=== PATIENT | male | born 1955 | race African-American/Black ===

== ENCOUNTER 2017-05-12 18:23 | Emergency (ER) | payer MEDICARE, MEDICAID ==
[~2017-05-12] VITALS: Ht 165.1 cm; Wt 73.0 kg
[~2017-05-12 18:23] MED LIST: ALBU18HF2 IH; ALBU2.5V13 IH; BENAZEPRIL PO; ENAL1TAB10 PO; HYDROCHLOROTHIAZIDE PO; P50 PO
[2017-05-12 20:55] VITALS: BP 138/85
[2017-05-12] MEDS ORDERED: BACITRACIN ZINC OINT UDPKT TOP ONE (21:15)
[2017-05-12] MEDS ORDERED: LIDOCAINE HCL 1% 20ML VIAL (Pyxis) INJ MC ONE (21:15)
== END 2017-05-12 22:36 | disposition home or self-care (01) ==
LOC: ER 18:23
DX: L02.211 Cutaneous abscess of abdominal wall (principal); J45.909 Unspecified asthma, uncomplicated; F17.210 Nicotine dependence, cigarettes, uncomplicated
CPT/HCPCS: 10060; 99283; J3490

== ENCOUNTER 2017-05-15 14:06 | Emergency (ER) | payer MEDICARE, MEDICAID ==
[~2017-05-15] VITALS: Ht 165.1 cm; Wt 73.5 kg
[2017-05-15 14:45] VITALS: BP 96/57
== END 2017-05-15 17:46 | disposition home or self-care (01) ==
LOC: ER 16:15
DX: Z48.817 Encounter for surgical aftercare following surgery on the skin and subcutaneous tissue (principal); J44.9 Chronic obstructive pulmonary disease, unspecified; I10 Essential (primary) hypertension; F17.200 Nicotine dependence, unspecified, uncomplicated
CPT/HCPCS: 99283

== ENCOUNTER 2017-05-19 10:52 | Emergency (ER) | payer MEDICARE, MEDICAID ==
[~2017-05-19] VITALS: Ht 165.1 cm; Wt 73.0 kg
[2017-05-19 11:47] VITALS: BP 120/50
[2017-05-19] MEDS ORDERED: BACITRACIN ZINC OINT UDPKT TOP ONE (13:15)
== END 2017-05-19 13:16 | disposition home or self-care (01) ==
LOC: ER 13:13
DX: Z08 Encounter for follow-up examination after completed treatment for malignant neoplasm (principal); I10 Essential (primary) hypertension; F17.210 Nicotine dependence, cigarettes, uncomplicated; J44.9 Chronic obstructive pulmonary disease, unspecified
CPT/HCPCS: 99283

== ENCOUNTER 2017-07-07 10:53 | Emergency (ER) | payer MEDICARE, MEDICAID ==
[~2017-07-07] VITALS: Ht 167.6 cm; Wt 73.0 kg
[2017-07-07] MEDS ORDERED: LIDOCAINE HCL 1% 20ML VIAL (Pyxis) INJ MC ONE (19:15)
[2017-07-07] MEDS ORDERED: BACITRACIN ZINC OINT UDPKT TOP ONE (19:15)
[2017-07-07 19:49] VITALS: BP 116/68
== END 2017-07-07 20:44 | disposition home or self-care (01) ==
LOC: ER 10:53
DX: L02.411 Cutaneous abscess of right axilla (principal); I10 Essential (primary) hypertension
CPT/HCPCS: 10060; 99283; J3490

== ENCOUNTER 2017-07-09 10:21 | Emergency (ER) | payer MEDICARE, MEDICAID ==
[~2017-07-09] VITALS: Ht 165.1 cm; Wt 70.0 kg
[2017-07-09 13:06] VITALS: BP 113/60
[2017-07-09] MEDS: BACITRACIN ZINC OINT UDPKT TOP ONE (13:54)
== END 2017-07-09 13:58 | disposition home or self-care (01) ==
LOC: ER 10:29
DX: Z48.01 Encounter for change or removal of surgical wound dressing (principal); I10 Essential (primary) hypertension
CPT/HCPCS: 99282

== ENCOUNTER 2018-06-27 13:02 | Emergency (ER) | payer MEDICARE, MEDICAID ==
[~2018-06-27] VITALS: Ht 165.1 cm; Wt 78.0 kg
[2018-06-27] MEDS ORDERED: KETOROLAC 30MG/ML VIAL IV STA (13:56)
[2018-06-27 14:31] LABS: BASOPHILS % 0.5 % (0.0-2.0); EOSINOPHILS % 6.2 % (0.0-5.0); HEMATOCRIT. 41.4 % (42.0-52.0); HEMOGLOBIN. 13.9 g/dL (14.0-18.0); LYMPHOCYTES % 37.9 % (20.0-50.0); MEAN CORPUSCULAR HEMOGLOBIN 29.8 pg (28.0-32.0); MEAN CORPUSCULAR VOLUME 88.6 fL (80.0-94.0); MEAN PLATELET VOLUME 6.8 fl (7.4-10.4); NEUTROPHILS % 46.4 % (40.0-76.0); PLATELET 268 x1000/uL (130-400); RED BLOOD CELL COUNT 4.68 mill/uL (4.7-6.1); RED CELL DISTRIBUTION WIDTH 13.1 % (11.6-14.6)
[2018-06-27 14:37] LABS: CHLORIDE 109 mEq/L (98-107)
[2018-06-27 18:05] VITALS: BP 123/78
== END 2018-06-27 18:13 | disposition home or self-care (01) ==
LOC: ER 13:55
DX: R07.89 Other chest pain (principal); I10 Essential (primary) hypertension; J45.909 Unspecified asthma, uncomplicated; F17.200 Nicotine dependence, unspecified, uncomplicated
CPT/HCPCS: 36415; 71045; 80053; 83880; 84484; 85025; 93005; 96374; 99285; J1885

== ENCOUNTER 2018-11-22 13:22 | Emergency (ER) | payer MEDICARE, MEDICAID ==
[~2018-11-22] VITALS: Ht 165.1 cm; Wt 74.0 kg
[2018-11-22 14:09] VITALS: BP 166/89
== END 2018-11-22 17:24 | disposition home or self-care (01) ==
LOC: ER 14:02
DX: J40 Bronchitis, not specified as acute or chronic (principal); F17.200 Nicotine dependence, unspecified, uncomplicated; I10 Essential (primary) hypertension; Z79.899 Other long term (current) drug therapy
CPT/HCPCS: 71045; 99283

== ENCOUNTER 2018-11-30 20:44 | Emergency (ER) | payer MEDICARE, MEDICAID ==
[~2018-11-30] VITALS: Ht 165.1 cm; Wt 74.0 kg
[2018-12-01 02:36] VITALS: BP 142/92
== END 2018-12-01 02:40 | disposition home or self-care (01) ==
LOC: ER 20:44
DX: I10 Essential (primary) hypertension (principal); R05 Cough; R51 Headache
CPT/HCPCS: 99281

== ENCOUNTER 2019-06-27 15:54 | Emergency (ER) | payer MEDICARE, MEDICAID ==
[~2019-06-27] VITALS: Ht 165.1 cm; Wt 73.0 kg
[2019-06-27 16:07] VITALS: BP 137/78
[2019-06-27] MEDS ORDERED: LIDOCAINE HCL/PF 1% 10 MG/ML 5ML VIAL IJ ONE (16:30)
== END 2019-06-27 17:29 | disposition home or self-care (01) ==
LOC: ER 16:05
DX: L03.011 Cellulitis of right finger (principal); F17.200 Nicotine dependence, unspecified, uncomplicated; J45.909 Unspecified asthma, uncomplicated; Z98.890 Other specified postprocedural states; Z79.899 Other long term (current) drug therapy
CPT/HCPCS: 10060; 99283; J3490

== ENCOUNTER 2019-08-09 10:39 | Emergency (ER) | payer MEDICARE, MEDICAID ==
[~2019-08-09] VITALS: Ht 165.1 cm; Wt 65.0 kg
[2019-08-09] MEDS ORDERED: KETOROLAC 15MG/ML VIAL IM ONE (12:30)
[2019-08-09 15:09] VITALS: BP 125/87
== END 2019-08-09 15:10 | disposition home or self-care (01) ==
LOC: ER 10:39
DX: M54.2 Cervicalgia (principal); R03.0 Elevated blood-pressure reading, without diagnosis of hypertension; J45.909 Unspecified asthma, uncomplicated
CPT/HCPCS: 72040; 93005; 96372; 99283; J1885

== ENCOUNTER 2019-10-05 08:29 | Emergency (ER) | payer MEDICARE, MEDICAID ==
[~2019-10-05] VITALS: Ht 162.6 cm; Wt 70.0 kg
[2019-10-05] MEDS ORDERED: ALBUTEROL (0.083%) 2.5MG/3ML NEB HHN STA (13:17)
[2019-10-05] MEDS ORDERED: IPRATROPIUM BROMIDE (0.02%) 0.5MG/2.5ML NEB HHN STA (13:17)
[2019-10-05] MEDS ORDERED: PREDNISONE 20MG TABLET PO STA (13:17)
[2019-10-05 14:52] LABS: BASOPHILS % 0.3 % (0.0-2.0); EOSINOPHILS % 10.1 % (0.0-5.0); HEMATOCRIT. 47.1 % (42.0-52.0); HEMOGLOBIN. 15.8 g/dL (14.0-18.0); LYMPHOCYTES % 42.1 % (20.0-50.0); MEAN CORPUSCULAR HEMOGLOBIN 29.5 pg (28.0-32.0); MEAN PLATELET VOLUME 6.7 fl (7.4-10.4); MONOCYTES % 8.9 % (2.0-8.0); NEUTROPHILS % 38.6 % (40.0-76.0); PLATELET 286 x1000/uL (130-400); RED BLOOD CELL COUNT 5.35 mill/uL (4.7-6.1)
[2019-10-05 14:58] LABS: CHLORIDE 108 mEq/L (98-107)
[2019-10-05 15:53] VITALS: BP 139/87
== END 2019-10-05 15:55 | disposition home or self-care (01) ==
LOC: ER 08:29
DX: J45.901 Unspecified asthma with (acute) exacerbation (principal); F17.200 Nicotine dependence, unspecified, uncomplicated; R07.9 Chest pain, unspecified; Z79.899 Other long term (current) drug therapy
CPT/HCPCS: 36415; 71045; 80053; 85025; 93005; 94640; 99284; J7512; J7611

== ENCOUNTER 2021-05-16 15:14 | Emergency (ER) | payer MEDICARE, OTHER ==
[~2021-05-16] VITALS: Ht 165.1 cm; Wt 73.4 kg
[2021-05-16 15:51] VITALS: BP 127/78
[2021-05-16] MEDS ORDERED: ALBU6.7H9 INH (17:03)
== END 2021-05-16 17:30 | disposition home or self-care (01) ==
LOC: ER 15:14
DX: Z76.0 Encounter for issue of repeat prescription (principal); J45.909 Unspecified asthma, uncomplicated
CPT/HCPCS: 99283

== ENCOUNTER 2022-08-07 19:08 | Emergency (ER) | payer MEDICAID, MEDICARE, OTHER ==
[~2022-08-07] VITALS: Ht 165.1 cm; Wt 73.0 kg
[~2022-08-07 19:08] MED LIST changes: +ALBU6.7H3 INH
[2022-08-07 19:22] VITALS: BP 169/100
[2022-08-07] MEDS ORDERED: ALBU2.5V13 NEB (21:04)
[2022-08-07] MEDS ORDERED: FLUT1DIS2 INH (21:04)
[2022-08-07] MEDS ORDERED: ALBUTEROL (0.5%) 2.5MG/0.5ML NEB HHN ONE (21:15)
== END 2022-08-07 21:54 | disposition home or self-care (01) ==
LOC: ER 19:08
DX: J45.909 Unspecified asthma, uncomplicated (principal); Z76.0 Encounter for issue of repeat prescription
CPT/HCPCS: 94640; 99283; Z7610

== ENCOUNTER 2022-09-01 17:50 | Emergency (ER) | payer MEDICARE, OTHER ==
[~2022-09-01] VITALS: Ht 165.1 cm; Wt 73.0 kg
[~2022-09-01 17:50] MED LIST changes: +ALBU2.5V13 NEB; +FLUT1DIS2 INH
[2022-09-01 18:19] VITALS: BP 123/84
[2022-09-01] MEDS ORDERED: FLUT1DIS3 INH (20:32)
== END 2022-09-01 20:53 | disposition home or self-care (01) ==
LOC: ER 17:50
DX: J45.909 Unspecified asthma, uncomplicated (principal); Z79.899 Other long term (current) drug therapy
CPT/HCPCS: 99283

== ENCOUNTER 2022-10-07 15:50 | Emergency (ER) | payer BC, MEDICAID ==
[~2022-10-07] VITALS: Ht 165.1 cm; Wt 73.0 kg
[~2022-10-07 15:50] MED LIST changes: +FLUT1DIS3 INH
[2022-10-07 16:01] VITALS: BP 145/84
[2022-10-07] MEDS ORDERED: FLUT1BLS9 IH (19:21)
== END 2022-10-07 19:38 | disposition home or self-care (01) ==
LOC: ER 15:50
DX: Z76.0 Encounter for issue of repeat prescription (principal); J44.9 Chronic obstructive pulmonary disease, unspecified; J45.909 Unspecified asthma, uncomplicated
CPT/HCPCS: 99283

== ENCOUNTER 2022-12-22 15:37 | Emergency (ER) | payer BC, MEDICAID ==
[~2022-12-22] VITALS: Ht 165.1 cm; Wt 73.0 kg
[~2022-12-22 15:37] MED LIST changes: +FLUT1BLS9 IH
[2022-12-22 15:41] VITALS: BP 174/82
[2022-12-22 21:21] LABS: CLARITY URINE CLEAR (CLEAR); COLOR URINE YELLOW (YELLOW); KETONES URINE NEGATIVE (NEGATIVE); LEUKOCYTE ESTERASE URINE NEGATIVE (NEGATIVE); NITRITE URINE NEGATIVE (NEGATIVE); OCCULT BLOOD URINE NEGATIVE (NEGATIVE); PROTEIN URINE NEGATIVE (NEGATIVE); SPECIFIC GRAVITY URINE 1.022 (1.005-1.030)
[2022-12-22 22:54] LABS: CHLORIDE 105 mEq/L (98-107)
[2022-12-22 23:00] LABS: BASOPHILS % 0.5 % (0.0-2.0); EOSINOPHILS % 2.4 % (0.0-5.0); MEAN CORPUSCULAR HEMOGLOBIN 29.3 pg (28.0-32.0); MEAN CORPUSCULAR VOLUME 89.5 fL (80.0-94.0); MEAN PLATELET VOLUME 6.8 fl (7.4-10.4); MONOCYTES % 9.4 % (2.0-8.0); NEUTROPHILS % 35.7 % (40.0-76.0); PLATELET 343 x1000/uL (130-400); RED BLOOD CELL COUNT 5.47 mill/uL (4.7-6.1); RED CELL DISTRIBUTION WIDTH 13.2 % (11.6-14.6)
[2022-12-22] MEDS ORDERED: ACET-2708 MT (23:43)
== END 2022-12-23 00:16 | disposition home or self-care (01) ==
LOC: ER 15:37
DX: R07.89 Other chest pain (principal); M54.9 Dorsalgia, unspecified; M54.2 Cervicalgia; R10.84 Generalized abdominal pain
CPT/HCPCS: 36415; 71045; 80053; 81003; 83880; 84484; 85025; 93005; 99285

== ENCOUNTER 2025-02-21 16:55 | Emergency (ER) | payer BC, MEDICAID ==
[~2025-02-21] VITALS: Ht 165.1 cm; Wt 73.0 kg
[~2025-02-21 16:55] MED LIST changes: +ACET-2708 MT
[2025-02-21 17:00] VITALS: O2SAT 97
[2025-02-21 17:15] VITALS: BP 158/88; PULSE 79; RESP 16; TEMP 36.9; O2SAT 95
== END 2025-02-21 19:35 | disposition home or self-care (01) ==
LOC: ER 16:55
DX: B34.9 Viral infection, unspecified (principal); I10 Essential (primary) hypertension; J44.0 Chronic obstructive pulmonary disease with (acute) lower respiratory infection; E78.5 Hyperlipidemia, unspecified; Z79.51 Long term (current) use of inhaled steroids; Z79.52 Long term (current) use of systemic steroids; Z79.899 Other long term (current) drug therapy; Z98.890 Other specified postprocedural states
CPT/HCPCS: 71046; 99283